=== PATIENT | female | born 1965 | race Caucasian/White ===

== ENCOUNTER 2018-08-13 19:16 | Inpatient (IN) ==
[2018-08-13] MEDS ORDERED: SODIUM CHLORIDE 0.9% IV STA (19:51)
[2018-08-13] MEDS ORDERED: VANCOMYCIN IV STA (19:51)
[2018-08-13] MEDS ORDERED: CEFEPIME 2,000 MG in SODIUM CHLORIDE 0.9% 100 ML IV STA (19:53)
[2018-08-13] MEDS ORDERED: VANCOMYCIN INJ 1,500 MG in SODIUM CHLORIDE 0.9% 500 ML IV STA (20:00)
[2018-08-13] MEDS ORDERED: KETOROLAC 30 MG/1 ML VIAL IV STA (20:12)
[2018-08-13] MEDS ORDERED: SODIUM CHLORIDE 0.9% 100 ML IV ONE (20:12)
[2018-08-13] MEDS ORDERED: CEFEPIME 2,000 MG VIAL ONE (20:12)
[2018-08-13 20:15] LABS: Basophils # 0.1 10*3/uL (0.0-0.2); Basophils % 0.5 % (0.0-0.8); Eosinophils # 0.1 10*3/uL (0.0-0.87); Hematocrit 47.8 VOL% (35.7-47.0); Hemoglobin 16.6 GM/DL (12.0-16.0); Immature Granulocytes % 0.3 %; Immature Granulocytes Absolute 0.03 #; Lymphocytes # 2.5 10*3/uL (1.4-4.0); Mean Corpuscular HGB Conc 34.7 GM/DL (32-36); Mean Corpuscular Hemoglobin 32 PG (27-34); Mean Corpuscular Volume 92.8 FL (87-102); Mean Platelet Volume 10.1 FL (9.6-12.0); Monocytes # 0.7 10*3/uL (0.11-0.8); Monocytes % 7.2 % (1.7-12.7); Neutrophils # 6.3 10*3/uL (1.4-7.4); Platelet Count 180 T/CUMM (130-400); Red Blood Count 5.15 MC/CUMM (3.8-5.5); Red Cell Distribution Width 11.5 % (9.3-17.3); White Blood Count 9.7 T/CUMM (4-12)
[2018-08-13 20:38] LABS: Alanine Aminotransferase 27 U/L (13-56); Albumin 3.7 G/DL (3.4-5.0); Alkaline Phosphatase 123 U/L (45-117); Aspartate Amino Transferase 18 U/L (0-37); Blood Urea Nitrogen 7 MG/DL (7-18); Calcium 8.6 MG/DL (8.5-10.1); Glucose 248 MG/DL (74-106); Osmolality,Calculated 273.2 MOS/KG (273-304); Potassium 3.9 MMOL/L (3.5-5.1); Sodium 134 MMOL/L (136-145); Total Protein 6.2 G/DL (6.4-8.3)
[2018-08-13] MEDS ORDERED: DEXTROSE 50% 25 GM/50 ML SYRINGE IV PRN (22:01)
[2018-08-13] MEDS ORDERED: GLUCAGON 1 MG VIAL IM PRN (22:01)
[2018-08-14] MEDS ORDERED: PARoxetine 20 MG TABLET PO SCH ×2 (00:03→09:00)
[2018-08-14] MEDS ORDERED: ZONISAMIDE 100 MG CAPSULE PO SCH ×2 (00:04→09:00)
[2018-08-14] MEDS ORDERED: PANTOPRAZOLE 40 MG TABLET PO SCH ×2 (00:04→09:00)
[2018-08-14] MEDS: ZALEPLON 5 MG CAPSULE PO SCH ×2 (00:27→21:34)
[2018-08-14] MEDS: PANTOPRAZOLE 40 MG TABLET PO SCH ×2 (00:28→21:34)
[2018-08-14] MEDS: ZONISAMIDE 100 MG CAPSULE PO SCH ×2 (00:28→21:34)
[2018-08-14] MEDS: PARoxetine 20 MG TABLET PO SCH ×2 (00:28→21:34)
[2018-08-14] MEDS: INSULIN REGULAR 100 UNIT/ML SUBCUT SCH ×5 (00:30→21:37)
[2018-08-14] MEDS ORDERED: CEFTAROLINE 600 MG in SODIUM CHLORIDE 0.9% 100 ML IV SCH (06:00)
[2018-08-14] MEDS: ONDANSETRON 4 MG/2 ML VIAL IV PRN ×2 (06:51→14:57)
[2018-08-14] MEDS: MORPHINE 4 MG/1 ML VIAL IV PRN ×2 (06:52→19:26)
[2018-08-14 07:22] LABS: Basophils # 0.1 10*3/uL (0.0-0.2); Basophils % 0.4 % (0.0-0.8); Eosinophils # 0.1 10*3/uL (0.0-0.87); Hematocrit 48.8 VOL% (35.7-47.0); Hemoglobin 16.4 GM/DL (12.0-16.0); Immature Granulocytes % 0.5 %; Immature Granulocytes Absolute 0.06 #; Lymphocytes # 1.6 10*3/uL (1.4-4.0); Lymphocytes % 14.1 % (21.3-54.2); Mean Corpuscular HGB Conc 33.6 GM/DL (32-36); Mean Corpuscular Hemoglobin 32 PG (27-34); Mean Corpuscular Volume 93.7 FL (87-102); Mean Platelet Volume 10.5 FL (9.6-12.0); Monocytes # 0.8 10*3/uL (0.11-0.8); Neutrophils # 8.8 10*3/uL (1.4-7.4); Platelet Count 184 T/CUMM (130-400); Red Blood Count 5.21 MC/CUMM (3.8-5.5); Red Cell Distribution Width 11.7 % (9.3-17.3); White Blood Count 11.5 T/CUMM (4-12)
[2018-08-14 07:41] LABS: Albumin 3.5 G/DL (3.4-5.0); Bilirubin,Total 1.4 MG/DL (0.2-1.0); Calcium 8.8 MG/DL (8.5-10.1); Osmolality,Calculated 278.8 MOS/KG (273-304); Total Protein 5.9 G/DL (6.4-8.3)
[2018-08-14] MEDS: INSULIN GLARGINE 100 UNIT/ML SUBCUT SCH (10:49)
[2018-08-14] MEDS: sitaGLIPtin 25 MG TABLET PO SCH (10:50)
[2018-08-14] MEDS: LISINOPRIL 5 MG TABLET PO SCH (13:40)
[2018-08-14] MEDS: RIZATRIPTAN ODT 5 MG TABLET PO PRN (13:41)
[2018-08-14] MEDS: ceFAZolin 1,000 MG in SYRINGE 1 EACH IV SCH ×2 (13:42→19:39)
[2018-08-14] MEDS: VANCOMYCIN INJ 1,500 MG in SODIUM CHLORIDE 0.9% 500 ML IV SCH (14:50)
[2018-08-15] MEDS: VANCOMYCIN INJ 1,500 MG in SODIUM CHLORIDE 0.9% 500 ML IV SCH ×2 (01:48→16:42)
[2018-08-15] MEDS: ceFAZolin 1,000 MG in SYRINGE 1 EACH IV SCH ×4 (01:49→19:36)
[2018-08-15] MEDS: MORPHINE 4 MG/1 ML VIAL IV PRN ×2 (02:21→19:42)
[2018-08-15 05:26] LABS: Basophils # 0.1 10*3/uL (0.0-0.2); Basophils % 0.8 % (0.0-0.8); Eosinophils # 0.2 10*3/uL (0.0-0.87); Eosinophils % 2.5 % (0.00-10.9); Hematocrit 45.3 VOL% (35.7-47.0); Hemoglobin 15.4 GM/DL (12.0-16.0); Immature Granulocytes % 0.5 %; Immature Granulocytes Absolute 0.03 #; Lymphocytes # 1.3 10*3/uL (1.4-4.0); Lymphocytes % 22.1 % (21.3-54.2); Mean Corpuscular Hemoglobin 32 PG (27-34); Mean Corpuscular Volume 93.4 FL (87-102); Mean Platelet Volume 10.4 FL (9.6-12.0); Monocytes # 0.4 10*3/uL (0.11-0.8); Monocytes % 6.8 % (1.7-12.7); Neutrophils # 4.1 10*3/uL (1.4-7.4); Neutrophils % 67.3 % (38.7-73.9); Platelet Count 177 T/CUMM (130-400); Red Blood Count 4.85 MC/CUMM (3.8-5.5); Red Cell Distribution Width 11.7 % (9.3-17.3)
[2018-08-15 05:40] LABS: Calcium 8.2 MG/DL (8.5-10.1); Potassium 3.5 MMOL/L (3.5-5.1)
[2018-08-15] MEDS ORDERED: FAMOTIDINE 20 MG TABLET PO ONE (06:00)
[2018-08-15] MEDS ORDERED: DIAZEPAM 5 MG TABLET PO ONE (06:00)
[2018-08-15] MEDS: ONDANSETRON 4 MG/2 ML VIAL IV PRN ×2 (07:21→19:42)
[2018-08-15] MEDS: LISINOPRIL 5 MG TABLET PO SCH (08:47)
[2018-08-15] MEDS: INSULIN REGULAR 100 UNIT/ML SUBCUT SCH ×4 (08:47→21:28)
[2018-08-15] MEDS: sitaGLIPtin 25 MG TABLET PO SCH (09:00)
[2018-08-15] MEDS: INSULIN GLARGINE 100 UNIT/ML SUBCUT SCH (09:00)
[2018-08-15] MEDS ORDERED: LIDOCAINE 1% 20 ML VIAL ONE (11:16)
[2018-08-15] MEDS ORDERED: SCOPOLAMINE 1.5 MG PATCH TRANSDERM ONE ×2 (11:27→11:30)
[2018-08-15] MEDS ORDERED: MIDAZOLAM 2 MG/2 ML VIAL ONE (12:37)
[2018-08-15] MEDS ORDERED: DEXAMETHASONE 4 MG/1 ML VIAL ONE (12:37)
[2018-08-15] MEDS ORDERED: fentaNYL 100 MCG/2 ML VIAL ONE (12:37)
[2018-08-15] MEDS ORDERED: ONDANSETRON 4 MG/2 ML VIAL IV PRN (12:37)
[2018-08-15] MEDS ORDERED: MEPERIDINE 25 MG/1 ML VIAL IV PRN (12:37)
[2018-08-15] MEDS ORDERED: PROPOFOL 200 MG/20 ML VIAL IV ONE (12:37)
[2018-08-15] MEDS ORDERED: ONDANSETRON 4 MG/2 ML VIAL ONE (12:37)
[2018-08-15] MEDS ORDERED: SEVOFLURANE 1 UNIT/15 MINUTE INH ONE (12:37)
[2018-08-15] MEDS ORDERED: HYDROmorphone 2 MG/1 ML VIAL IV PRN (12:37)
[2018-08-15] MEDS ORDERED: PROMETHAZINE 25 MG/1 ML VIAL ONE (12:37)
[2018-08-15] MEDS ORDERED: SUCCINYLCHOLINE 200 MG/10 ML VIAL ONE (12:38)
[2018-08-15] MEDS ORDERED: ACETAMINOPHEN 1,000 MG/100 ML VIAL IV ONE (12:38)
[2018-08-15] MEDS ORDERED: LABETALOL 20 MG/4 ML SYRINGE IV STA (13:25)
[2018-08-15] MEDS: ZONISAMIDE 100 MG CAPSULE PO SCH (21:28)
[2018-08-15] MEDS: PARoxetine 20 MG TABLET PO SCH (21:28)
[2018-08-15] MEDS: PANTOPRAZOLE 40 MG TABLET PO SCH (21:28)
[2018-08-15] MEDS: ZALEPLON 5 MG CAPSULE PO SCH (21:28)
[2018-08-16] MEDS: ceFAZolin 1,000 MG in SYRINGE 1 EACH IV SCH ×2 (01:51→06:36)
[2018-08-16] MEDS: VANCOMYCIN INJ 1,500 MG in SODIUM CHLORIDE 0.9% 500 ML IV SCH ×2 (01:54→14:26)
[2018-08-16] MEDS: RIZATRIPTAN ODT 5 MG TABLET PO PRN (03:19)
[2018-08-16] MEDS: INSULIN REGULAR 100 UNIT/ML SUBCUT SCH ×4 (08:53→21:28)
[2018-08-16] MEDS: INSULIN GLARGINE 100 UNIT/ML SUBCUT SCH (08:54)
[2018-08-16] MEDS: sitaGLIPtin 25 MG TABLET PO SCH (08:54)
[2018-08-16] MEDS: LISINOPRIL 5 MG TABLET PO SCH (08:55)
[2018-08-16] MEDS: SODIUM HYPOCHLORITE 0.25% IRRIG 473 ML BOTTLE TOP SCH (09:53)
[2018-08-16] MEDS: CHLORHEXIDINE 4% SOLN 118 ML BOTTLE TOP SCH (09:53)
[2018-08-16] MEDS ORDERED: INSULIN GLARGINE 100 UNIT/ML SUBCUT SCH (10:13)
[2018-08-16] MEDS: MORPHINE 4 MG/1 ML VIAL IV PRN (16:29)
[2018-08-16] MEDS: ONDANSETRON 4 MG/2 ML VIAL IV PRN (16:29)
[2018-08-16] MEDS: ZONISAMIDE 100 MG CAPSULE PO SCH (21:26)
[2018-08-16] MEDS: PANTOPRAZOLE 40 MG TABLET PO SCH (21:27)
[2018-08-16] MEDS: PARoxetine 20 MG TABLET PO SCH (21:27)
[2018-08-16] MEDS: ZALEPLON 5 MG CAPSULE PO SCH (21:27)
[2018-08-17] MEDS: VANCOMYCIN INJ 1,500 MG in SODIUM CHLORIDE 0.9% 500 ML IV SCH (01:36)
[2018-08-17 04:48] LABS: Basophils # 0.1 10*3/uL (0.0-0.2); Basophils % 0.5 % (0.0-0.8); Eosinophils # 0.2 10*3/uL (0.0-0.87); Eosinophils % 1.2 % (0.00-10.9); Hematocrit 43.2 VOL% (35.7-47.0); Hemoglobin 14.4 GM/DL (12.0-16.0); Immature Granulocytes % 0.9 %; Immature Granulocytes Absolute 0.14 #; Lymphocytes # 1.4 10*3/uL (1.4-4.0); Lymphocytes % 9.4 % (21.3-54.2); Mean Corpuscular HGB Conc 33.3 GM/DL (32-36); Mean Corpuscular Hemoglobin 32 PG (27-34); Mean Corpuscular Volume 96.4 FL (87-102); Monocytes # 1.2 10*3/uL (0.11-0.8); Neutrophils # 12.2 10*3/uL (1.4-7.4); Platelet Count 178 T/CUMM (130-400); Red Blood Count 4.48 MC/CUMM (3.8-5.5); Red Cell Distribution Width 11.9 % (9.3-17.3); White Blood Count 15.3 T/CUMM (4-12)
[2018-08-17 05:15] LABS: Calcium 8.4 MG/DL (8.5-10.1); Osmolality,Calculated 274.8 MOS/KG (273-304); Potassium 3.4 MMOL/L (3.5-5.1)
[2018-08-17] MEDS: RIZATRIPTAN ODT 5 MG TABLET PO PRN (06:02)
[2018-08-17] MEDS ORDERED: MAGNESIUM SULF RIDER 2 GM in PREMIX 1 EACH IV ONE (08:00)
[2018-08-17] MEDS ORDERED: POTASSIUM CHLORIDE 20 MEQ TABLET PO ONE (08:01)
[2018-08-17 08:08] VITALS: BP 155/85
[2018-08-17] MEDS: INSULIN REGULAR 100 UNIT/ML SUBCUT SCH ×2 (08:37→12:38)
[2018-08-17] MEDS: LISINOPRIL 5 MG TABLET PO SCH (08:37)
[2018-08-17] MEDS: sitaGLIPtin 25 MG TABLET PO SCH (08:38)
[2018-08-17] MEDS: SODIUM HYPOCHLORITE 0.25% IRRIG 473 ML BOTTLE TOP SCH (10:27)
[2018-08-17] MEDS: CHLORHEXIDINE 4% SOLN 118 ML BOTTLE TOP SCH (10:27)
== END 2018-08-17 12:53 | disposition home or self-care (01) | DRG 623 ==
LOC: N.ED 19:16 → N.EDINP 22:01 → N.3E 22:55
PROVIDERS: ADMIT Internal Medicine; ATTEND Internal Medicine